=== PATIENT | female | born 1955 | race Two or more races ===

== ENCOUNTER 2024-07-30 10:42 | Emergency (ER) | payer OTHER ==
[~2024-07-30] VITALS: Ht 154.9 cm; Wt 68.0 kg
[2024-07-30] MEDS ORDERED: NORVASC5 MG (11:15)
[2024-07-30] MEDS ORDERED: KETOROLAC TROMETHAMINE 60 MG VIAL IM ONE (11:45)
[2024-07-30] MEDS ORDERED: ORPHENADRINE CITRATE 100 MG TABLET PO SCH (12:00)
== END 2024-07-30 16:11 | disposition home or self-care (01) ==
LOC: ER 10:44
DX: J32.9 Chronic sinusitis, unspecified (principal); M62.838 Other muscle spasm; I10 Essential (primary) hypertension; Z88.0 Allergy status to penicillin
CPT/HCPCS: 72040; 96372; 99283; J1885